=== PATIENT | female | born 1950 | race Caucasian/White ===

== ENCOUNTER 2020-12-20 14:59 | Outpatient (REF) | payer BC, SELFPAY ==
[2020-12-20 16:02] LABS: Anion Gap 16 (12-20); Blood Urea Nitrogen 9 mg/dL (9-16); Calcium 9.9 mg/dL (8.4-10.2); Carbon Dioxide 25 mmol/L (22-29); Chloride 96 mmol/L (96-108); Estimated Glomerular Filt Rate 47; Glucose Random 558 mg/dL (60-115); Potassium 4.8 mmol/L (3.3-5.1); Sodium 132 mmol/L (135-145)
== END 2020-12-20 15:00 | disposition home or self-care (01) ==
LOC: HO.LAB 14:59
PROVIDERS: PCP Internal Medicine; Visit Provider Psychiatry & Neurology Neurology
DX: I73.9 Peripheral vascular disease, unspecified (principal)
CPT/HCPCS: 36415; 80048

== ENCOUNTER 2023-04-17 13:31 | Outpatient (AMB) | payer MEDICARE, SELFPAY ==
--- NOTE | 2023-04-17 13:38 | MHC.OFFVIS ---
Intake Vital Signs 04/17/23 13:41 Height 5 ft 2 in Weight 112 lb 2 oz BMI 20.5 BP 108/72 Blood Pressure Location Lt brachial Position Sitting Respiration 16 Pulse 76 Pulse Source Pulse Oximeter Pulse Oximetry (%) 96 Oxygen Delivery Method Room Air Intake Visit Reasons: follow up - confirmed Intake Note: Pt presents to the office for follow up for dementia. Pt presents with her , Brian, who is also her historian. He reports her condition is unchanged. He states she saw a neurologist elsewhere who did a long test that traumatized her. The kept drilling her four hours and it took me weeks to get her back to her normal self. Allergies erythromycin base Allergy (Severe, Verified 04/17/23 13:40) jr ciprofloxacin Allergy (Intermediate, Verified 04/17/23 13:40) rash augmentin Allergy (Severe, Uncoded 04/17/23 13:40) itchy rash sulfa Allergy (Severe, Uncoded 04/17/23 13:40) rash latex Allergy (Intermediate, Uncoded 04/17/23 13:40) itchy rash Medication List - Last Reconciled 04/17/23 by Lukas Huitron, ALLI albuterol sulfate 90 mcg/actuation 2 puffs inhalation Q6H PRN atorvastatin (Lipitor) 10 mg PO DAILY etanercept (Enbrel) 50 mg subcut QWEEK folic acid 1 mg PO DAILY glyburide 5 mg PO BID memantine 7 mg PO DAILY 7 days metformin 1,000 mg PO BID HPI HPI Comments History of Present Illness Details 71 y/o female patient presents with her for follow up of dementia. Pt had a neuropsychology evaluation done in Jun, 2021 for memory changes. After testing patient was found to be functioning at a level consistent with moderate to severe dementia, mostly likely combination of vascular dementia and Alzheimer's disease. Testing showed a severe global impairment in all areas of cognitive function. It was recommended to trial memantine ER 7 mg daily and slowly increase as tolerated. Pt's recently discharged from rehab and takes care of patient. Pt was advised to take memantine 7mg and increase to 28 mg weekly, but she was on 7 mg and also has not taking it for weeks. Pt was mostly alone at home without help. She can do cleaning, bathing and clothing but not cooking. Pt's two daughters helps meal prep and cooking, but patient forgets to eat. Pt's sleep schedule can be vary, no behavior issues. Pt was in processing to get help and work with [email or web address], but she did not let them to come. [facility] Family History Mother No problems noted. Father No problems noted. Social History Alcohol intake: never Patient Tobacco Use Status: Former Tobacco user Review of Systems Const All systems reviewed & are unremarkable except as noted in HPI and below ENT Reports Normal hearing present Neuro Reports Normal hearing present Physical Exam Vital Signs: Last Vital Signs Pulse 76 04/17/23 13:41 Resp 16 04/17/23 13:41 BP 108/72 04/17/23 13:41 Pulse Ox 96 04/17/23 13:41 Oxygen Delivery Method Room Air 04/17/23 13:41 BMI result Body Mass Index 20.5 Const General: cooperative and no acute distress Orientation/consciousness: oriented to person and oriented to place Neck Neck: Yes full ROM and Yes supple Resp Effort & Inspection: normal respiratory effort and able to speak in complete sentences Neuro General: oriented to person, oriented to place, gait normal, tone normal, moves all extremities and no focal motor deficits Cranial nerves: Yes Bilaterally intact EOM present, Yes Normal facial strength present, Yes Midline tongue present, Yes Symmetric palate elevation present, Yes Normal hearing present, Yes Ability to bilaterally rotate head present and Yes Ability to bilaterally elevate shoulders present Motor exam (neuro): 5/5 motor strength present throughout and Pronator motor function not present Psych Appearance: grossly normal Assessment & Plan Assessment & Plan (1) Dementia: Comment: Moderate to severe degree of dementia. The last neuropsychology evaluation done in Jun, 2021 Code(s): F03.90 - Unspecified dementia, unspecified severity, without behavioral disturbance, psychotic disturbance, mood disturbance, and anxiety Plan Restart memantine 7 mg ER daily for a month, and will increase. 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 Medications: Changed From memantine 7 mg PO DAILY 7 days 7 ea 0RF To memantine 7 mg PO DAILY 30 days 30 ea 0RF Coding Level of Care Code Est Pt Level 3 (37431) Diagnoses Dementia F03.90
[2023-04-17 13:41] VITALS: BP 108/72; PULSE 76; RESP 16; O2SAT 96; BMI 20.5
== END 2023-04-17 14:22 | disposition home or self-care (01) ==
PROVIDERS: PCP Internal Medicine; Visit Provider Nurse Practitioner Family
DX: F03.90 Unspecified dementia, unspecified severity, without behavioral disturbance, psychotic disturbance, mood disturbance, and anxiety (principal)
CPT/HCPCS: 99213

== ENCOUNTER → 2023-04-17 13:31 | Outpatient (BNVA) | payer MEDICARE, SELFPAY | PROVIDERS: PCP Internal Medicine; Visit Provider Nurse Practitioner Family | DX: F03.90 Unspecified dementia, unspecified severity, without behavioral disturbance, psychotic disturbance, mood disturbance, and anxiety (principal) | CPT/HCPCS: 99212 ==

== ENCOUNTER 2023-05-13 15:25 | Outpatient (AMB) | payer MEDICARE, OTHER, SELFPAY ==
[2023-05-13 15:36] VITALS: BP 128/70; PULSE 73; O2SAT 98; BMI 21.0
--- NOTE | 2023-05-13 15:36 | A.OFFVIS_ITS ---
Intake Vital Signs 05/13/23 15:36 Height 5 ft 2 in Weight 115 lb BMI 21.0 BP 128/70 Blood Pressure Location Lt brachial Position Sitting Pulse 73 Pulse Source Pulse Oximeter Pulse Oximetry (%) 98 Oxygen Delivery Method Room Air Intake Visit Reasons: 3 1/2 week f/u - Dementia-VM Not set up Intake Note: Pt presents to the office today for a 3 1/2 week follow up for dementia Allergies erythromycin base Allergy (Severe, Verified 05/13/23 15:39) jr ciprofloxacin Allergy (Intermediate, Verified 05/13/23 15:39) rash augmentin Allergy (Severe, Uncoded 05/13/23 15:39) itchy rash sulfa Allergy (Severe, Uncoded 05/13/23 15:39) rash latex Allergy (Intermediate, Uncoded 05/13/23 15:39) itchy rash Medication List - Last Reconciled 05/13/23 by Lukas Huitron, ALLI albuterol sulfate 90 mcg/actuation 2 puffs inhalation Q6H PRN atorvastatin (Lipitor) 10 mg PO DAILY lisinopril 2.5 mg PO DAILY memantine 21 mg PO DAILY 30 days memantine 14 mg PO DAILY 30 days memantine 28 mg PO DAILY 90 days metformin 500 mg PO TID sertraline 25 mg PO BEDTIME HPI HPI Comments History of Present Illness Details 72 y/o female patient presents with her for follow up of dementia. Pt restarted memantine 7 mg. Pt's reports she is very forgetful, keep asking same questions over and over again. She can be agitates at times, and having hard time sleeping. Pt's is the primary caregiver. She can do cleaning, bathing and clothing but not cooking. Pt's two daughters visits and helps meal prep and cooking, but patient forgets to eat. Pt does not drive. Pt was in processing to get help and work with [employer], but she did not let them to come. She does not want to have strangers. PFSH Family History Mother No problems noted. Father No problems noted. Alcohol intake: never Patient Tobacco Use Status: Former Tobacco user Review of Systems Const All systems reviewed & are unremarkable except as noted in HPI and below ENT Reports Normal hearing present Neuro Reports Normal hearing present Physical Exam Const General: cooperative and no acute distress Orientation/consciousness: oriented to person and oriented to place Neck Neck: Yes full ROM and Yes supple Resp Effort & Inspection: normal respiratory effort and able to speak in complete sentences Neuro General: oriented to person, oriented to place, gait normal, tone normal, moves all extremities and no focal motor deficits Cranial nerves: Yes Bilaterally intact EOM present, Yes Normal facial strength present, Yes Midline tongue present, Yes Symmetric palate elevation present, Yes Normal hearing present, Yes Ability to bilaterally rotate head present and Yes Ability to bilaterally elevate shoulders present Motor exam (neuro): 5/5 motor strength present throughout and Pronator motor fu nction not present Psych Appearance: grossly normal Assessment & Plan Assessment & Plan (1) Dementia: Comment: Moderate to severe degree of dementia. The last neuropsychology evaluation done in Jun, 2021 Code(s): F03.90 - Unspecified dementia, unspecified severity, without behavioral disturbance, psychotic disturbance, mood disturbance, and anxiety Plan Start memantine 14 mg ER daily for a month, and will increase 7 mg every month until it reach to 28 mg. Advised patient to try melatonin 3 mg qHS to help her sleep better. Advised patient's to have social service consultation for snf plan. Medications: New memantine Start memantine 21 mg after finish memantine 14 mg. 21 mg PO DAILY 30 days 30 ea 0RF melatonin 3 mg PO BEDTIME 30 days PRN 30 caps 5RF sleep memantine 14 mg PO DAILY 30 days 30 ea 0RF memantine Start after the memantine 21 mg finished. 28 mg PO DAILY 90 days 90 ea 1RF Discontinued memantine Discontinued Reason: Doctor's Order 7 mg PO DAILY 30 days 30 ea 0RF Coding Level of Care Code Est Pt Level 3 (31240) Diagnoses Dementia F03.90
== END 2023-05-13 15:58 | disposition home or self-care (01) ==
PROVIDERS: PCP Internal Medicine; Visit Provider Nurse Practitioner Family
DX: F03.90 Unspecified dementia, unspecified severity, without behavioral disturbance, psychotic disturbance, mood disturbance, and anxiety (principal)
CPT/HCPCS: 99213

== ENCOUNTER → 2023-05-13 15:25 | Outpatient (BNVA) | payer MEDICARE, OTHER, SELFPAY | PROVIDERS: PCP Internal Medicine; Visit Provider Nurse Practitioner Family | DX: F03.90 Unspecified dementia, unspecified severity, without behavioral disturbance, psychotic disturbance, mood disturbance, and anxiety (principal) | CPT/HCPCS: 99212 ==

== ENCOUNTER 2023-09-28 14:14 | Outpatient (AMB) | payer MEDICARE, OTHER, SELFPAY ==
--- NOTE | 2023-09-28 14:33 | MHC.OFFVIS ---
Vital Signs 09/28/23 14:41 Height 5 ft 2 in Weight 114 lb 6 oz BMI 20.9 BP 124/74 Blood Pressure Location Lt brachial Position Sitting Pulse 88 Pulse Source Pulse Oximeter Pulse Oximetry (%) 99 Oxygen Delivery Method Room Air Intake Visit Reasons: 6 mo f/u Dementia Intake Note: Patient presents for 6 months F/U. More memory loss and very agitated. Allergies erythromycin base Allergy (Severe, Verified 09/28/23 14:40) jr ciprofloxacin Allergy (Intermediate, Verified 09/28/23 14:40) rash augmentin Allergy (Severe, Uncoded 05/13/23 15:39) itchy rash sulfa Allergy (Severe, Uncoded 05/13/23 15:39) rash latex Allergy (Intermediate, Uncoded 05/13/23 15:39) itchy rash HPI Comments Details: 73 y/o female patient presents with her for follow up of dementia. Pt restarted memantine 7 mg. titration ordered, but pt did not get them. She still is on memantine 7 mg. Pt's reports she is very forgetful, keep asking same questions over and over again. She can be agitates at times, and having hard time sleeping. Pt's also reports she had a fall since the last visit. Chris injuries. Pt's is the primary caregiver. She can do cleaning, bathing and clothing but not cooking. Pt's two daughters visits and helps meal prep and cooking, but patient forgets to eat. Pt does not drive. PFSH Family History Mother No problems noted. Father No problems noted. Social History Alcohol intake: never Patient Tobacco Use Status: Former Tobacco user Review of Systems Const All systems reviewed & are unremarkable except as noted in HPI and below ENT Reports Normal hearing present Neuro Reports Normal hearing present Physical Exam Vital Signs: Last Vital Signs Pulse 88 09/28/23 14:41 BP 124/74 09/28/23 14:41 Pulse Ox 99 09/28/23 14:41 Oxygen Delivery Method Room Air 09/28/23 14:41 BMI result Body Mass Index 20.9 Const General: cooperative and no acute distress Orientation/consciousness: oriented to person and oriented to place Neck Neck: Yes full ROM and Yes supple Resp Effort & Inspection: normal respiratory effort and able to speak in complete sentences Neuro General: oriented to person, oriented to place, gait normal, tone normal, moves all extremities and no focal motor deficits Cranial nerves: Yes Bilaterally intact EOM present, Yes Normal facial strength present, Yes Midline tongue present, Yes Symmetric palate elevation present, Yes Normal hearing present, Yes Ability to bilaterally rotate head present and Yes Ability to bilaterally elevate shoulders present Motor exam (neuro): 5/5 motor strength present throughout and Pronator motor function not present Psych Appearance: grossly normal Assessment & Plan Assessment & Plan (1) Dementia: Comment: Moderate to severe degree of dementia. The last neuropsychology evaluation done in Jun, 2021 Code(s): F03.90 - Unspecified dementia, unspecified severity, without behavioral disturbance, psychotic disturbance, mood disturbance, and anxiety Category: Medical Plan Start memantine 14 mg ER daily for a month, and will increase 7 mg every month until it reach to 28 mg. Advised patient to try melatonin 3 mg qHS to help her sleep better. Refer patient to physical therapy for gait training and lower extremities strength. Orders: Orders PT Evaluation and Treatment 09/28/23 R29.6 - Repeated falls Medications: Refilled memantine 14 mg PO DAILY 30 ea 0RF 30 days Discontinued memantine Start memantine 21 mg after finish memantine 14 mg. Discontinued Reason: Doctor's Order 21 mg PO DAILY 30 days 30 ea 0RF memantine Start after the memantine 21 mg finished. Discontinued Reason: Doctor's Order 28 mg PO DAILY 90 days 90 ea 1RF Coding Level of Care Code Est Pt Level 3 (64883) Diagnoses Dementia F03.90
[2023-09-28 14:41] VITALS: BP 124/74; PULSE 88; O2SAT 99; BMI 20.9
== END 2023-09-28 15:02 | disposition home or self-care (01) ==
LOC: HO.HSMS 14:14
PROVIDERS: PCP Internal Medicine; Visit Provider Nurse Practitioner Family
DX: F03.90 Unspecified dementia, unspecified severity, without behavioral disturbance, psychotic disturbance, mood disturbance, and anxiety (principal)
CPT/HCPCS: 99213

== ENCOUNTER → 2023-09-28 14:14 | Outpatient (BNVA) | payer MEDICARE, OTHER, SELFPAY | PROVIDERS: PCP Internal Medicine; Visit Provider Nurse Practitioner Family | DX: F03.90 Unspecified dementia, unspecified severity, without behavioral disturbance, psychotic disturbance, mood disturbance, and anxiety (principal); R29.6 Repeated falls | CPT/HCPCS: 99212 ==

== ENCOUNTER 2023-12-09 11:06 | Outpatient (AMB) | payer MEDICARE, OTHER, SELFPAY ==
--- NOTE | 2023-12-09 11:26 | A.OFFVIS_ITS ---
Vital Signs 12/09/23 11:35 Height 5 ft 2 in Weight 112 lb 2 oz BMI 20.5 BP 122/70 Blood Pressure Location Rt brachial Position Sitting Respiration 16 Pulse 58 Pulse Source Pulse Oximeter Pulse Oximetry (%) 97 Oxygen Delivery Method Room Air Intake Visit Reasons: Follow Up Intake Note: Patient presents for f/u. Dementia is progressing. Fidgeting and memory getting worse. Allergies erythromycin base Allergy (Severe, Verified 12/09/23 11:34) jr ciprofloxacin Allergy (Intermediate, Verified 12/09/23 11:34) rash augmentin Allergy (Severe, Uncoded 05/13/23 15:39) itchy rash sulfa Allergy (Severe, Uncoded 05/13/23 15:39) rash latex Allergy (Intermediate, Uncoded 05/13/23 15:39) itchy rash Medication List - Last Reconciled 12/09/23 by Crissy Montano MD albuterol sulfate 90 mcg/actuation 2 puffs inhalation Q6H PRN atorvastatin (Lipitor) 10 mg PO DAILY lisinopril 2.5 mg PO DAILY melatonin 3 mg PO BEDTIME PRN 90 days memantine 21 mg PO DAILY 15 days memantine 28 mg PO DAILY metformin 500 mg PO TID sertraline 25 mg PO BEDTIME HPI Comments Details: 73 y/o female patient presents with her for follow up of dementia. she has worsened since her last visit. Her balance is poor and had recent falls Patient is on 14 mg of memantine XR now Patient's reports she is very forgetful, repeats she need supervision with all her ADLS. She can be agitates at times, and having hard time sleeping. Patient's is the primary caregiver. She can do cleaning, bathing and clothing but not cooking. Patient's two daughters visits and helps meal prep and cooking, but patient forg ets to eat. [facility] Medical History (Updated 12/09/23 @ 12:00 by Crissy Montano MD) Hyperlipidemia HTN (hypertension) Arthritis Diabetes Family History Mother No problems noted. Father No problems noted. Social History Alcohol intake: never Patient Tobacco Use Status: Former Tobacco user Review of Systems ENT Reports Normal hearing present Neuro Reports Normal hearing present Physical Exam Vital Signs: Last Vital Signs Pulse 58 12/09/23 11:35 Resp 16 12/09/23 11:35 BP 122/70 12/09/23 11:35 Pulse Ox 97 12/09/23 11:35 Oxygen Delivery Method Room Air 12/09/23 11:35 BMI result Body Mass Index 20.5 Const General: cooperative and no acute distress Orientation/consciousness: oriented to person and oriented to place Neck Neck: Yes full ROM and Yes supple Resp Effort & Inspection: normal respiratory effort and able to speak in complete sentences Neuro General: oriented to person, oriented to place, gait normal, tone normal, moves all extremities and no focal motor deficits Cranial nerves: Yes Bilaterally intact EOM present, Yes Normal facial strength present, Yes Midline tongue present, Yes Symmetric palate elevation present, Yes Normal hearing present, Yes Ability to bilaterally rotate head present and Yes Ability to bilaterally elevate shoulders present Motor exam (neuro): 5/5 motor strength present throughout and Pronator motor function not present Psych Appearance: grossly normal Assessment & Plan Assessment & Plan (1) Dementia: Comment: Moderate to severe degree of dementia. The last neuropsychology evaluation done in Jun, 2021 Code(s): F03.90 - Unspecified dementia, unspecified severity, without behavioral disturbance, psychotic disturbance, mood disturbance, and anxiety Category: Medical Plan Increase memantine 21 mg ER qd for 2 weeks then 28 mg qd Advised patient to try melatonin 3 mg qHS to help her sleep better. Referred to [facility] and [facility] for supportive services Medications: New memantine 28 mg PO DAILY 30 ea 6RF Changed From memantine 14 mg PO DAILY 30 days 30 ea 4RF To memantine 21 mg PO DAILY 15 days 15 ea 0RF Coding Level of Care Code Est Pt Level 4 (29324) Diagnoses Dementia F03.90
[2023-12-09 11:35] VITALS: BP 122/70; PULSE 58; RESP 16; O2SAT 97; BMI 20.5
== END 2023-12-09 12:07 | disposition home or self-care (01) ==
PROVIDERS: PCP Internal Medicine; Visit Provider Psychiatry & Neurology Neurology
DX: F03.90 Unspecified dementia, unspecified severity, without behavioral disturbance, psychotic disturbance, mood disturbance, and anxiety (principal)
CPT/HCPCS: 99214

== ENCOUNTER → 2023-12-09 11:06 | Outpatient (BNVA) | payer MEDICARE, OTHER, SELFPAY | PROVIDERS: PCP Internal Medicine; Visit Provider Psychiatry & Neurology Neurology | DX: F03.90 Unspecified dementia, unspecified severity, without behavioral disturbance, psychotic disturbance, mood disturbance, and anxiety (principal) | CPT/HCPCS: 99212 ==

== ENCOUNTER 2024-03-29 10:37 | Outpatient (AMB) | payer MEDICARE, OTHER, SELFPAY ==
--- NOTE | 2024-03-29 10:40 | MHC.OFFVIS ---
Vital Signs 03/29/24 10:41 Height 5 ft 2 in Weight 111 lb BMI 20.3 BP 122/80 Blood Pressure Location Rt brachial Position Sitting Pulse 68 Pulse Source Pulse Oximeter Pulse Oximetry (%) 95 Oxygen Delivery Method Room Air Intake Visit Reasons: 6 mon follow up Intake Note: Patient presents for a 4 mon follow up. ( Dementia ) Household Assistant Required: No Accompanied by: Spouse Allergies erythromycin base Allergy (Severe, Verified 03/29/24 10:44) jr ciprofloxacin Allergy (Intermediate, Verified 03/29/24 10:44) rash augmentin Allergy (Severe, Uncoded 05/13/23 15:39) itchy rash sulfa Allergy (Severe, Uncoded 05/13/23 15:39) rash latex Allergy (Intermediate, Uncoded 05/13/23 15:39) itchy rash Medication List - Last Reconciled 03/29/24 by Crissy Montano MD albuterol sulfate 90 mcg/actuation 2 puffs inhalation Q6H PRN atorvastatin (Lipitor) 10 mg PO DAILY lisinopril 2.5 mg PO DAILY melatonin 3 mg PO BEDTIME PRN 90 days memantine 28 mg PO DAILY metformin 500 mg PO TID sertraline 25 mg PO BEDTIME HPI Comments Details: 73 y/o female patient presents with her for follow up of dementia. she has worsened since her last visit. Her balance is poor and had recent fallsSHe has wandering epsiodes at night. Her cognition worsens in the evening , more anxious and agitated at night. she has hallucinations. Patient is on 28 mg of memantine XR now Patient's reports she is very forgetful, repeats she need supervision with all her ADLS. Patient's is the primary caregiver. Patient's two daughters visits and helps meal prep and cooking, but patient forgets to eat. [facility] Medical History Hyperlipidemia HTN (hypertension) Arthritis Diabetes Family History Mother No problems noted. Father No problems noted. Social History Alcohol intake: never Patient Tobacco Use Status: Former Tobacco user Review of Systems ENT Reports Normal hearing present Neuro Reports Normal hearing present Physical Exam Vital Signs: Last Vital Signs Pulse 68 03/29/24 10:41 BP 122/80 03/29/24 10:41 Pulse Ox 95 03/29/24 10:41 Oxygen Delivery Method Room Air 03/29/24 10:41 BMI result Body Mass Index 20.3 Const General: cooperative and no acute distress Orientation/consciousness: oriented to person and oriented to place Neck Neck: Yes full ROM and Yes supple Resp Effort & Inspection: normal respiratory effort and able to speak in complete sentences Neuro General: oriented to person, oriented to place, gait normal, tone normal, moves all extremities and no focal motor deficits Cranial nerves: Yes Bilaterally intact EOM present, Yes Normal facial strength present, Yes Midline tongue present, Yes Symmetric palate elevation present, Yes Normal hearing present, Yes Ability to bilaterally rotate head present and Yes Ability to bilaterally elevate shoulders present Motor exam (neuro): 5/5 motor strength present throughout and Pronator motor function not present Psych Appearance: grossly normal Assessment & Plan Assessment & Plan (1) Dementia: Comment: Moderate to severe degree of dementia. The last neuropsychology evaluation done in Jun, 2021 Code(s): F03.90 - Unspecified dementia, unspecified severity, without behavioral disturbance, psychotic disturbance, mood disturbance, and anxiety Category: Medical Qualifiers: Dementia type: Alzheimer's Alzheimer's disease onset: late onset Dementia severity: severe Dementia behavioral or psychological symptom: with agitation Qualified Code(s): G30.1 - Alzheimer's disease with late onset; F02.C11 - Dementia in other diseases classified elsewhere, severe, with agitation Plan Continue memantine 28 mg qd Advised patient to try melatonin 3 mg qHS to help her sleep better. Referred to [facility] and [facility] for supportive services Medications: New quetiapine 1/2 to 1 orally bedtime; 30 tabs 6RF Refilled memantine 28 mg PO DAILY 30 ea 6RF Discontinued memantine Discontinued Reason: Patient no longer taking 21 mg PO DAILY 15 days 15 ea 0RF Coding Level of Care Code Est Pt Level 4 (53151) Complex EM visit Add On G2211 Diagnoses Severe late onset Alzheimer's dementia with agitation G30.1; F02.C11 Dementia type: Alzheimer's Alzheimer's disease onset: late onset Dementia severity: severe Dementia behavioral or psychological symptom: with agitation
[2024-03-29 10:41] VITALS: BP 122/80; PULSE 68; O2SAT 95; BMI 20.3
== END 2024-03-29 11:06 | disposition home or self-care (01) ==
PROVIDERS: PCP Internal Medicine; Visit Provider Psychiatry & Neurology Neurology
DX: G30.1 Alzheimer's disease with late onset (principal); F02.C11 Dementia in other diseases classified elsewhere, severe, with agitation
CPT/HCPCS: 99214; G2211

== ENCOUNTER → 2024-03-29 10:37 | Outpatient (BNVA) | payer MEDICARE, OTHER, SELFPAY | PROVIDERS: PCP Internal Medicine; Visit Provider Psychiatry & Neurology Neurology | DX: G30.1 Alzheimer's disease with late onset (principal); F02.C11 Dementia in other diseases classified elsewhere, severe, with agitation | CPT/HCPCS: 99212 ==